=== PATIENT | female | born 1995 | race Caucasian/White ===

== ENCOUNTER 2019-06-29 21:30 | Emergency (ER) | payer OTHER ==
[2019-06-29] MEDS ORDERED: ONDANSETRON HCL IV 4 MG/2 ML VIAL IVP ONE (21:36)
--- NOTE | 2019-06-29 21:41 | Emergency Department Record ---
History of Present Illness - General Chief complaint: Fatigue and Weakness Stated complaint: WEAK, SHAKEY,NAUSEA Time Seen by Provider: 06/29/19 21:31 Source: Patient Mode of Arrival: Ambulatory Limitations: No limitations - History of Present Illness Initial comments: 23 yo female presents to ED for evaluation of feeling weak, dizzy, and nauseated for the past 1 hour. Patient does report a history of previous symptoms that usually resolves with drinking gatorade. Patient denies fevers, chills, or recent illness. Patient denies chance of . Patient denies health problems at her baseline. MD Complaint: Generalized weakness Onset/Timin -: Hour(s) Location: Generalized Severity: Moderate Consistency: Constant Improves with: None Worsens with: None Associated Symptoms: Denies other symptoms - [place] Coma Scale Eye Response: (4) Open spontaneously Motor Response: (6) Obeys commands Verbal Response: (5) Oriented [place] Total: 15 - Related Data Home Medications Medication Instructions Recorded Confirmed Last Taken Alprazolam [Xanax] 0.5 mg PO TID PRN 06/29/19 06/29/19 06/28/19 Amitriptyline HCl [Elavil] 0 mg PO 06/29/19 06/29/19 Unknown Cetirizine HCl [Zyrtec] 10 mg PO QHS 06/29/19 06/29/19 Unknown Fexofenadine HCl [Najma Allergy] 60 mg PO DAILY 06/29/19 06/29/19 Unknown Hydrocodone/Acetaminophen [Mcgregor 1 each PO BID PRN 06/29/19 06/29/19 06/28/19 5-325 Tablet] Montelukast Sodium [Singulair] 10 mg PO QHS 06/29/19 06/29/19 Unknown Omeprazole [Prilosec] 20 mg PO DAILY 06/29/19 06/29/19 Unknown Pregabalin [Lyrica] 75 mg PO BID 06/29/19 06/29/19 Unknown Previous Rx's Medication Instructions Recorded Ondansetron [Zofran Odt] 4 mg PO Q8H PRN #10 tab.rapdis 06/29/19 Allergies Allergy/AdvReac Type Severity Reaction Status Date / Time No Known Drug Allergies Allergy Verified 06/29/19 21:35 Review of Systems Constitutional: Denies: Chills, Fever, Malaise, Night sweats Eyes: Denies: Eye discharge, Eye pain ENT: Denies: Congestion, Ear pain, Epistaxis Respiratory: Denies: Cough, Dyspnea Cardiovascular: Denies: Chest pain, Dyspnea on exertion Endocrine: Denies: Fatigue, Heat or cold intolerance Gastrointestinal: Reports: Nausea. Denies: Abdominal pain, Constipation, Vomiting Genitourinary: Denies: Incontinence, Retention Musculoskeletal: Denies: Arthralgia, Back pain Skin: Denies: Bruising, Change in color Neurological: Reports: Vertigo. Denies: Abnormal gait, Confusion, Headache, Seizure Psychiatric: Denies: Anxiety Hematological/Lymphatic: Denies: Anemia, Blood Clots Physical Exam - General General Appearance: Alert, Oriented x3, Cooperative, Mild distress Limitations: No limitations - Head Head exam: Atraumatic, Normocephalic, Normal inspection Head exam detail: negative: Abrasion, Contusion, Cadet's sign, General tendern ess, Hematoma, Laceration - Eye Eye exam: Normal appearance. negative: Conjunctival injection, Periorbital swelling, Periorbital tenderness, Scleral icterus - ENT Ear exam: negative: Auricular hematoma, Auricular trauma Nasal Exam: negative: Active bleeding, Discharge, Dried blood, Foreign body Mouth exam: negative: Drooling, Laceration, Muffled voice, Tongue elevation - Neck Neck exam: Normal inspection. negative: Meningismus, Tenderness - Respiratory Respiratory exam: Normal lung sounds bilaterally. negative: Rales, Respiratory distress, Rhonchi, Stridor - Cardiovascular Cardiovascular Exam: Regular rate, Normal rhythm, Normal heart sounds - GI/Abdominal GI/Abdominal exam: Soft. negative: Rebound, Rigid, Tenderness - Rectal Rectal exam: Deferred - exam: Deferred - Extremities Extremities exam: Normal inspection. negative: Pedal edema, Tenderness - Back Back exam: Denies: CVA tenderness (R), CVA tenderness (L) - Neurological Neurological exam: Alert, Normal gait, Oriented X3 - Psychiatric Psychiatric exam: Normal affect, Normal mood - Skin Skin exam: Normal color. negative: Abrasion Type of lesion: negative: abrasion Course Vital Signs 06/29/19 21:34 Temperature 97.9 F Pulse Rate [ 77 Pulse Ox Probe] Respiratory 24 Rate Blood Pressure 123/84 [Left Arm] Pulse Ox 100 - Reevaluation(s) Reevaluation #1: 06/29/19 22:13 Laboratory studies were reviewed and appear grossly unremarkable for an acute process. Patient was reassessed and reports that she is feeling much improved. Patient appears stable for discharge at this time. Medical Decision Making - Lab Data Result diagrams: 06/29/19 22:00 06/29/19 22:00 Disposition Disposition: Discharge Clinical Impression: Near syncope Disposition: Home, Self-Care Condition: (2) Stable Instructions: Near Syncope (ED) Additional Instructions: Return to ED if your symptoms worsen or if you have any concerns. Zofran as directed. Follow-up with your family doctor in 3-5 days as directed. Prescriptions: Ondansetron [Zofran Odt] 4 mg PO Q8H PRN #10 tab.rapdis PRN Reason: Nausea/Vomiting Forms: Patient Portal Access Time of Disposition: 23:03 Quality - Quality Measures Quality Measures: N/A - Blood Pressure Screening Does Patient Have Any of the Following: No Blood Pressure Classification: Normal BP Reading Systolic Measurement: 119 Diastolic Measurement: 75 Screening for High Blood Pressure: < Normal BP, F/U Not Required > [G8783]
[2019-06-29] MEDS ORDERED: 0.9 % SODIUM CHLORIDE 1000ML 1,000 ML IV SCH (21:45)
[2019-06-29 21:58] LABS: URINE APPEARANCE CLOUDY; URINE BILIRUBIN NEGATIVE (NEGATIVE); URINE BLOOD NEGATIVE (NEGATIVE); URINE COLOR YELLOW; URINE GLUCOSE (UA) NEGATIVE (NEGATIVE); URINE KETONE NEGATIVE (NEGATIVE); URINE LEUKOCYTE ESTERASE NEGATIVE (NEGATIVE); URINE NITRITE NEGATIVE (NEGATIVE); URINE PROTEIN NEGATIVE (NEGATIVE); URINE UROBILINOGEN 0.2 E.U./dL (0.20 - 1.00)
[2019-06-29 22:00] LABS: HCG,QUALITATIVE URINE NEGATIVE (NEGATIVE)
[2019-06-29 22:10] LABS: ABSOLUTE NEUTROPHIL COUNT 8.41; BASO % 0.2 % (0-6); EOS % 0.6 % (0-6); GRAN % 74.6 % (47-80); HEMATOCRIT 38.4 % (35.0-47.0); HEMOGLOBIN 12.6 gm/dl (11.6-16.0); LYMPH % 18.1 % (16-45); MEAN CELL VOLUME 85.9 fl (81-97); MEAN CORPUSCULAR HEMOGLOBIN 28.2 pg (27-33); MEAN CORPUSCULAR HGB CONC 32.8 g/dl (32-36); MEAN PLATELET VOLUME 8.8 fl (7.4-10.4); MONO % 6.5 % (0-9); PLATELET COUNT 375 K/uL (130-400); RED BLOOD COUNT 4.47 M/uL (3.80-5.40); RED CELL DISTRIBUTION WIDTH 12.9 % (11.5-14.5); WHITE BLOOD COUNT W/O DIFF 11.3 K/uL (4.2-12.2)
[2019-06-29 22:23] LABS: BLOOD UREA NITROGEN 7 mg/dL (6-20); CREATININE 0.5 mg/dL (0.5-0.9); EST GLOMERULAR FILTRATION RATE > 60 mL/min
[2019-06-29 22:24] LABS: TOTAL PROTEIN 5.9 g/dL (6.6-8.7)
[2019-06-29 22:26] LABS: GLUCOSE,RANDOM 115 mg/dL (74-109)
[2019-06-29 22:29] LABS: ALB/GLOB RATIO 1.8 (1.1-1.8); ALBUMIN 3.8 g/dL (4.0-5.0); ALKALINE PHOSPHATASE 38 U/L (35-104); ALT/SGPT 15 U/L (<33); AST/SGOT 17 U/L (10.0-35.0)
== END 2019-06-29 23:06 | disposition home or self-care (01) ==
LOC: ER 21:30
DX: R55 Syncope and collapse (principal); R53.1 Weakness; R11.0 Nausea
CPT/HCPCS: 80053; 81003; 81025; 85025; 96374; 99284; J2405; J7030